=== PATIENT | male | born 1955 | race Caucasian/White ===

== ENCOUNTER 2016-10-31 13:00 | Emergency (ER) | payer SELFPAY ==
[~2016-10-31 13:00] MED LIST: Iopamidol 370 76% 125 ML VIAL FS ONE; Sodium Chloride 0.9% 100 ML BAG ONE
[2016-10-31] MEDS ORDERED: methylPREDNISolone Sod Succ/PF 125 MG/2 ML VIAL ONE (13:13)
[2016-10-31 13:50] LABS: #Basophils 0.1 thou/uL (0.0-0.2); #Eosinphils 0.1 thou/uL (0.0-0.7); #Lymphocytes 1.8 thou/uL (1.20-3.40); #Monocytes 0.9 thou/uL (0.11-0.59); %Basophils 1.4 % (0.0-1.0); %Eosinophils 1.3 % (0.0-10.0); %Lymphocytes 25.7 % (21.0-51.0); %Monocytes 13.6 % (0.0-10.0); Hemoglobin 14.1 g/dL (14.0-18.0); Mean Corpuscular HGB CONC 33.8 g/dL (32.0-36.0); Mean Corpuscular Hemoglobin 31.3 pg (27.0-31.0); Mean Corpuscular Volume 92.5 fl (80.0-94.0); Mean Platelet Volume 7.6 fL (7.4-10.4); Platelet Count 243 thou/uL (130-400); RBC Distribution Width 12.9 % (11.5-14.5); Red Blood Cell (RBC) Count 4.49 mill/uL (4.70-6.10); White Blood Cell (WBC) Count 6.9 thou/uL (4.8-10.8)
[2016-10-31 14:01] LABS: ALT (SGPT) 32 U/L (0-55); AST (SGOT) 43 U/L (5-34); Albumin 4.2 g/dL (3.5-5.0); Alkaline Phosphatase 68 U/L (40-150); Anion Gap 20 mmol/L (10-20); BUN (Urea Nitrogen) 11 mg/dL (8.4-25.7); Bilirubin, Total 0.8 mg/dL (0.2-1.2); Calc. Creatinine Clearance 0 mL/min (70-130); Calcium 9.6 mg/dL (7.8-10.44); Carbon Dioxide 27 mmol/L (22-29); Chloride 97 mmol/L (98-107); Estimated GFR-MDRD Greater than 90; Globulin 3.4 g/dL (2.4-3.5); Glucose 84 mg/dL (70-105); Potassium 4.2 mmol/L (3.5-5.1); Protein, Total 7.6 g/dL (6.0-8.3); Sodium 140 mmol/L (136-145)
[2016-10-31 14:06] LABS: Troponin I Less than 0.010 ng/mL (< 0.028)
--- NOTE | 2016-10-31 14:23 | CT ---
CT ARTERIOGRAM CHEST WITH IV CONTRAST AND 3D MIP IMAGING: History: Dyspnea. FINDINGS: There is good contrast opacification of the pulmonary arteries and thoracic aorta with normal branch ing of the great vessels. Calcification is present within the arterial structures. Lungs are hyper inflated. No pleural fluid or pneumothorax are evident. There are degenerative changes of the thor acic spine. Calcified granulomata are consistent with healed granulomatous disease. IMPRESSION: 1. No CT evidence of pulmonary embolis. 2. Atherosclerosis. 3. COPD. POS: JIMENAH
[2016-10-31] MEDS ORDERED: Albuterol Sulfate 2.5 mg/0.5 ml Neb ONE (14:44)
[2016-10-31] MEDS ORDERED: Albuterol Sulfate 1.25 MG/3 ML NEB ONE (14:46)
--- NOTE | 2016-10-31 16:20 | PICIS ---
[facility] EMERGENCY RECORD TRIAGE (SatOct 31, 2016 13:07 JDIS) TRIAGE NOTES: pt with sob all day. +smoker. (SatOct 31, 2016 13:07 JDIS) PATIENT: NAME: Jalil Cummings, AGE: 61, GENDER: male, : Parveen1955, TIME OF GREET: SatOct 31, 2016 13:01, PREFERRED LANGUAGE: Chadian, ETHNICITY: Not or , ECODE BILLING MAP: [facility], SSN: [id number], Zip Code: [address], KG WEIGHT: 81.65, PHONE: , , , PERSON ID: [id number], PCP: none. (SatOct 31, 2016 13:07 JDIS) COMPLAINT: dyspnea. (SatOct 31, 2016 13:07 JDIS) ADMISSION: URGENCY: 2 Emergent, ADMISSION SOURCE: Other, TRANSPORT: Walk-in, BED: ED -01. (SatOct 31, 2016 13:07 JDIS) SIRS SCORING: Heart Rate 55-109 (0), Temp range 96.8-101.1 (0), respiratory rate 12-24 (0), Mental Status altered: no (0), Infection or Suspected Infection: No. (13:32 JDIS) TRIAGE SCREENING: Patient denies suicidal ideation, Patient denies presence of domestic violence. (13:32 JDIS) PROVIDERS: TRIAGE NURSE: Perla Aguilar RN. (SatOct 31, 2016 13:07 JDIS) PREVIOUS VISIT ALLERGIES: No Known Drug Allergies. (SatOct 31, 2016 13:07 JDIS) No Known Drug Allergies. (13:32 JDIS) KNOWN ALLERGIES No Known Drug Allergies CURRENT MEDICATIONS (13:32 JDIS) None VITAL SIGNS VITAL SIGNS: Pulse: 78, Resp: 24, Temp: 97.3 (Tympanic), Pain: 0, O2 sat: 95 on Room Air, Time: 10/31/2016 13:15. (13:15 JDIS) BP: 101/69, Time: 10/31/2016 13:35. (13:35 JDIS) BP: 145/75, Pulse: 75, Resp: 20, Pain: 0, O2 sat: 98 on 2L Oxygen, Time: 10/31/2016 14:01. (14:01 JDIS) BP: 120/70, Pulse: 74, Resp: 26, Temp: 98.4 (Oral), Pain: 0, O2 sat: 98 on Room Air, Time: 10/31/2016 14:16. (14:16 JDIS) BP: 126/68, Pulse: 60, Resp: 18, Pain: 0, O2 sat: 97 on Room Air, Time: 10/31/2016 14:53. (14:53 JDIS) BP: 137/68, Pulse: 68, Resp: 22, Temp: 98.4, Pain: 0, O2 sat: 97 on 2l, Time: 10/31/2016 15:36. (15:36 JDIS) NURSING ASSESSMENT: FALL RISK (13:41 JDIS) FALL RISK: Impaired mobility (3), Total score 3, No risk for fall. NURSING ASSESSMENT: RESPIRATORY /CHEST (13:30 JDIS) CONSTITUTIONAL: Patient arrives, via hospital wheelchair, Unsteady gait, History obtained from patient, Patient &a-1R&a+25V*p+0X*e5462W*c202B*c15G*c2P*p-0X&a-25V&a+1R Name: Jalil Cummings : 1955 M61 MedRec: [id number] AcctNum: [id number] Prepared: SatOct 31, 2016 18:45 by Interface Page 1 of 10 pMD [facility] EMERGENCY RECORD appears, uncomfortable, Patient cooperative, Patient alert, Oriented to person, place and time, Skin warm, Skin dry, Skin normal in color, Mucous membranes pink, Mucous membranes moist, Patient is well-groomed. RESPIRATORY/CHEST: Lungs auscultated, Breath sounds with wheezing, Respiratory assessment findings include respiratory effort, labored, Respirations regular, Conversing normally, Neck and chest exam findings include trachea midline, Chest expansion equal, Chest movement symmetrical. NURSING PROCEDURE: DISCHARGE NOTE (15:36 JDIS) DISCHARGE: Patient discharged to home, ambulating without assistance, patient walking, unaccompanied, Summary of Care printed/ provided, Patient requested and was provided an electronic copy of Discharge Instructions, Transition record given to patient, Discharge instructions given to patient, Simple or moderate discharge teaching performed, by Juan Jose Aguilar RN, Above person(s) verbalized understanding of discharge instructions and follow-up care, Patient treated and evaluated by physician. VITAL SIGNS: BP: 137, / 68, Pulse: 68, Resp: 22, Temp: 98.4, Pain: 0, O2 sat: 97, on: 2l. NURSING PROCEDURE: EKG CHART (13:10 JDIS) PATIENT IDENTIFIER: Patient actively involved in identification process, Patient's identity verified by patient stating name, Patient's identity verified by patient stating date. EKG: EKG indicated for dyspnea, 12 lead EKG performed on the left chest. FOLLOW-UP: After procedure, EKG for interpretation given to Dr. Dr Mckeon. NURSING PROCEDURE: IV PATIENT IDENITIFIER: Patient actively involved in identification process, Patient's identity verified by patient stating name, Patient's identity verified by patient stating date. (13:20 JDIS) IV SITE 1: IV therapy indicated for hydration, IV therapy indicated for medication administration, IV established, Notes: 2 failed attempts by ARTHUR Lee. (13:25 SFRE) IV therapy indicated for medication administration, IV established, to posterior left elbow, using an 18 gauge catheter, in one attempt, Labs drawn at time of placement, labeled in the presence of the patient and sent to lab. (13:20 JDIS) NOTES: Patient tolerated procedure well. (13:20 JDIS) NURSING PROCEDURE: NURSE NOTES NURSES NOTES: Notes: Pt to room 1 via WC c/o SOB all day. Denies any hx of asthma or COPD. Pt +smoker "most of my life". Skin warm and dry. Pt with increased respirations. Denies any fever. Able to talk in short sentences. Pt on monitor and O2. at bedside for &a-1R&a+25V*p+0X*m5559Q*c202B*c15G*c2P*p-0X&a-25V&a+1R Name: Jalil Cummings Janice : 1955 M61 MedRec: [id number] AcctNum: [id number] Prepared: SatOct 31, 2016 18:45 by Interface Page 2 of 10 pMD [facility] EMERGENCY RECORD eval. Pt with wheezing. (13:07 JDIS) Notes: IV done and labs drawn. Pt marjan well. Neb in progress. Pt medicated with steroid. Will monitor. (13:20 JDIS) Notes: Neb in progress. Pt marjan well. (14:52 JDIS) NURSING PROCEDURE: TRANSPORT TO TESTS PATIENT IDENTIFIER: Patient actively involved in identification process, Patient's identity verified by patient stating name, Patient's identity verified by patient stating date. (13:41 JDIS) TRANSPORT TO TESTS: Transport indicated to facilitate diagnosis, Patient transported to CT scan, via wheelchair, Accompanied by x-ray bottle house quality control technician. (13:41 JDIS) FOLLOW-UP: After procedure, patient returned to emergency department. (13:55 JDIS) ORDER DETAILS Order Name: B type Natriuretic Peptide, Status: Active, Time: 13:08 10/31/2016, User: BPIC, - Ordered for: MD Mckeon Bryan, - Entered by: MD Mckeon Bryan - [facility] Oct 31, 2016 13:08, - Quantity: 1, Order Name: Cardiac Profile w/CKMB & Troponin - I, Status: Active, Time: 13:08 10/31/2016, User: BPIC, - Ordered for: MD Mckeon Bryan, - Entered by: MD Mckeon Bryan - [facility] Oct 31, 2016 13:08, - Quantity: 1, Order Name: CBC with Differential, Status: Active, Time: 13:08 10/31/2016, User: BPIC, - Ordered for: MD Mckeon Bryan, - Entered by: MD Mckeon Bryan - [facility] Oct 31, 2016 13:08, - Quantity: 1, Order Name: Comprehensive Metabolic Panel, Status: Active, Time: 13:08 10/31/2016, User: BPIC, - Ordered for: MD Mckeon Bryan, - Entered by: MD Mckeon Bryan - [facility] Oct 31, 2016 13:08, - Quantity: 1, Order Name: CTA Angio Chest W WO Con(PE Protocol), Status: Active, Time: 13:08 10/31/2016, User: BPIC, - Ordered for: MD Mckeon Bryan, - Entered by: MD Mckeon Bryan - [facility] Oct 31, 2016 13:08, - Quantity: 1, Order Name: Culture, Blood, Status: Active, Time: 13:09 10/31/2016, User: DMITRY, - Ordered for: MD Mckeon Bryan, - Entered by: MD Mckeon Bryan - SatOct 31, 2016 13:09, - Quantity: 1, Order Name: EKG 12 Lead in Emergency Room, Status: Active, Time: 13:08 10/31/2016, User: BPIC, &a-1R&a+25V*p+0X*[id number]*c202B*c15G*c2P*p-0X&a-25V&a+1R Name: Jalil Cummings : 1955 M61 MedRec: [id number] AcctNum: [id number] Prepared: SatOct 31, 2016 18:45 by Interface Page 3 of 10 D [facility] EMERGENCY RECORD - Ordered for: MD Mckeon Bryan, - Entered by: MD Mckeon Bryan - SatOct 31, 2016 13:08, - Quantity: 1, Order Name: Lactic Acid with repeat, Status: Active, Time: 13:09 10/31/2016, User: BPNIDHI, - Ordered for: MD Mckeon Bryan, - Entered by: MD Mckeon Bryan - SatOct 31, 2016 13:09, - Quantity: 1. MEDICATION ADMINISTRATION SUMMARY Drug Name: albuterol sulfate inhalation, Dose Ordered: 5 mg, Route: Nebulize, Status: Given, Time: 14:52 10/31/2016, Drug Name: *DuoNeb, Dose Ordered: 3 mL, Route: Nebulize, Status: Given, Time: 13:28 10/31/2016, Drug Name: methylPREDNISolone sodium succ injection, Dose Ordered: 125 mg, Route: IV Push, Status: Given, Time: 13:20 10/31/2016, *Additional information available in notes, Detailed record available in Medication Service section. MEDICATION SERVICE albuterol sulfate inhalation: Order: albuterol sulfate inhalation (albuterol sulfate) - Dose: 5 mg : Nebulize Schedule: Now Ordered by: Elier Mckeon MD Entered by: Elier Mckeon MD SatOct 31, 2016 14:41 , Acknowledged by: Perla Aguilar RN SatOct 31, 2016 14:43 Documented as given by: Perla Aguilar RN SatOct 31, 2016 14:52 Patient, Medication, Dose, Route and Time verified prior to administration. With oxygen, Correct patient, time, route, dose and medication confirmed prior to administration, Patient advised of actions and side-effects prior to administration, Allergies confirmed and medications reviewed prior to administration. DuoNeb: Order: DuoNeb (ipratropium bromide/albuterol sulfate) - Dose: 3 mL : Nebulize Notes: (0.5mg Ipratropium [place]/3mg Albuterol Sulfate = 3ml) Ordered by: Elier Mckeon MD Entered by: Elier Mckeon MD SatOct 31, 2016 13:08 Documented as given by: Perla Aguilar RN SatOct 31, 2016 13:28 Patient, Medication, Dose, Route and Time verified prior to administration. With oxygen, Correct patient, time, route, dose and medication confirmed prior to administration, Patient advised of actions and side-effects prior to administration, Allergies confirmed and medications reviewed prior to administration. methylPREDNISolone sodium succ injection: Order: methylPREDNISolone sodium succ injection (methylprednisolone sod succ) - Dose: 125 mg : IV Push Ordered by: Elier Mckeon MD &a-1R&a+25V*p+0X*w3647A*c202B*c15G*c2P*p-0X&a-25V&a+1R Name: Jalil Cummings Janice : 1955 M61 MedRec: [id number] AcctNum: [id number] Prepared: SatOct 31, 2016 18:45 by Interface Page 4 of 10 pMD [facility] EMERGENCY RECORD Entered by: Elier Mckeon MD SatOct 31, 2016 13:08 Documented as given by: Perla Aguilar RN SatOct 31, 2016 13:20 Patient, Medication, Dose, Route and Time verified prior to administration. IV SITE #1 IVP, initial medication, Slowly, Catheter placement confirmed via flush prior to administration, IV site without signs or symptoms of infiltration during medication administration, No swelling during administration, No drainage during administration, IV flushed after administration, Correct patient, time, route, dose and medication confirmed prior to administration, Patient advised of actions and side-effects prior to administration, Allergies confirmed and medications reviewed prior to administration. HPI ASTHMA (13:09 BPIC) CHIEF COMPLAINT: Patient presents for evaluation of shortness of breath, Patient presents for evaluation of wheezing. HISTORIAN: History provided by patient, Pt with history of COPD presents with greater than a day history of progressive shortness of breath. Patient states that the shortness of breath can sometimes worsen with allergies or with weather changes or changes in medications. dyspnea is also worse currently with exertion. similar to previous episodes of dyspnea. pt also had broken his right fibula 3 weeks ago and was supposed to be put in a cast, but could not afford it. QUALITY: Symptoms described as wheezing. SEVERITY: Maximum severity of symptoms moderate, Currently symptoms are moderate. TIME COURSE: Gradual onset of symptoms. ROS (13:09 BPIC) CONSTITUTIONAL: Negative constitutional review of systems, Historian denies chills, denies fever. EYES: Negative eye review of systems. ENT: Negative ears, nose, throat review of systems. CARDIOVASCULAR: Negative cardiovascular review of systems, Historian denies chest pain, denies palpitations. RESPIRATORY: see hpi. GI: Negative gastrointestinal review of systems, Historian denies abdominal pain, denies constipation, denies diarrhea. MUSCULOSKELETAL: Negative musculoskeletal review of systems. SKIN: Negative skin review of systems. NEUROLOGIC: Negative neurologic review of systems. ENDOCRINE: Negative endocrine review of systems. HEMO/LYMPHATIC: Normal hematologic/lymphatic system review. PSYCHIATRIC: Negative psychiatric review of systems. NOTES: All other ROS is negative except as listed in HPI. PAST MEDICAL HISTORY MEDICAL HISTORY: Past medical history includes history of hypertension. (13:32 JDIS) &a-1R&a+25V*p+0X*l6804N*c202B*c15G*c2P*p-0X&a-25V&a+1R Name: Jalil Cummings Janice : 1955 M61 MedRec: [id number] AcctNum: [id number] Prepared: SatOct 31, 2016 18:45 by Interface Page 5 of 10 pMD [facility] EMERGENCY RECORD MALE SURGICAL HISTORY: Surgical history of orthopedic surgery, LEFT ARM-PINS AND RODS. (13:32 JDIS) PSYCHIATRIC HISTORY: No previous psychiatric history. (13:32 JDIS) SOCIAL HISTORY: Patient denies alcohol use, Patient denies drug use, Patient currently uses tobacco, smokes cigarettes. (13:32 JDIS) NOTES: I have reviewed and agree with the PMH/PSxH/FamHx/SocHx obtained by the nurse. (13:09 BPIC) PHYSICAL EXAM (13:09 BPIC) CONSTITUTIONAL: mild respiratory distress. HEAD: Head exam included findings of head atraumatic, normocephalic. EYES: Eye exam included findings of eyelids normal to inspection, Pupils equally round and reactive to light, Extraocular muscles intact. ENT: ENT exam normal, Nose exam normal, no nasal deformity, no bleeding from nares, Pharynx exam normal, Mouth exam normal, mucous membranes moist. NECK: Neck exam included findings of normal range of motion, Trachea midline. RESPIRATORY CHEST: Wheezing present, scattered. CARDIOVASCULAR: Cardiovascular assessment normal, Cardiovascular exam included findings of heart rate regular rate and rhythm, Heart sounds normal, equal radial and DP pulses. ABDOMEN FEMALE: Abdominal exam included findings of abdomen nontender, Bowel sounds normal, no mass, no pulsatile masses, no peritoneal signs. BACK: Back exam included findings of normal inspection, range of motion normal, no costovertebral angle tenderness. UPPER EXTREMITY: Upper extremity exam included findings of inspection normal, Range of motion normal. LOWER EXTREMITY: Lower extremity exam included findings of inspection shows right leg to be tender and slightly swollen (greatly improved per the patient's report), Range of motion normal. NEURO: Neuro exam findings include patient oriented to person, place and time, Speech normal, no focal motor deficits, no focal sensory deficits. SKIN: Skin exam included findings of skin warm, dry, and normal in color. PSYCHIATRIC: Psychiatric exam included findings of patient oriented to person place and time, Normal affect. EVENTS TRANSFER: Triage to Emergency Main ED -01. (SatOct 31, 2016 13:07 JDIS) Removed from Emergency Main ED -01. (16:07 JDIS) &a-1R&a+25V*p+0X*c9553D*c202B*c15G*c2P*p-0X&a-25V&a+1R Name: Cummings, Jalil Camacho : 1955 M61 MedRec: [id number] AcctNum: [id number] Prepared: SatOct 31, 2016 18:45 by Interface Page 6 of 10 pMD [facility] EMERGENCY RECORD EKG INTERPRETATION (13:09 BPIC) 12 LEAD EKG INTERPRETATION: 12 lead EKG interpreted by Emergency Department Physician at time of study, 12 lead EKG shows normal sinus rhythm, Rate (beats per minute): 75, Interpretation: normal EKG, Similar to old EKG, Conduction normal, ST segments normal, T waves normal, [place] normal, Clinical impression: Normal EKG. DOCTOR NOTES (13:09 BPIC) TEXT: COPD exacerbation, CT PE protocol ordered because of recent long bone injury. Patient's symptoms have improved after treatments in the ER. I discussed the diagnosis with the patient prior to discharge. All questions were answered. There is no indication for admission currently and the patient will follow up with a primary care physician. Any pertinent labs or imaging were reviewed and dicussed with the patient. If any new or emergent symptoms occur, the patient will return to the emergency department. PROBLEM LIST No recorded problems DIAGNOSIS (15:24 BPIC) FINAL: PRIMARY: COPD exacerbation. DISPOSITION PATIENT: Disposition Type: Discharge, Disposition: *Discharge Home, Condition: Good. (15:24 BPIC) Patient left the department. (16:07 JDIS) INSTRUCTION (15:16 BPIC) DISCHARGE: COPD FLARE. FOLLOWUP: [facility], -, Primary Care Referral Line, , [facility], ., Clinic, [address] [place] [address], [address], [facility] , . SPECIAL: Please follow up with your physician in the next 2-3 days. Return to the Emergency Room with any worsening of your symptoms or other emergent concerns. Thank you for choosing [facility] Emergency Department for your care today, and God Bless You!. PRESCRIPTION (15:16 BPIC) albuterol sulfate inhalation: HFA AEROSOL WITH ADAPTER (GRAM) : 90 mcg : INHALATION : Quantity: 1-2 Unit: inhalation Route: INHALATION Schedule: every 6 hours PRN Dispense: 1 May substitute. Refills: No Refills . NOTES: No Refills. Keflex: CAPSULE : 500 mg : ORAL : Quantity: 500 Unit: mg Route: ORAL Schedule: 2 times a day Dispense: 20 May substitute. Refills: No Refills . NOTES: ^s=No Refills &a-1R&a+25V*p+0X*e6679F*c202B*c15G*c2P*p-0X&a-25V&a+1R Name: Jalil Cummings : 1955 M61 MedRec: [id number] AcctNum: [id number] Prepared: SatOct 31, 2016 18:45 by Interface Page 7 of 10 pMD [facility] EMERGENCY RECORD No Refills. predniSONE oral: TABLET : 50 mg : ORAL : Quantity: 50 Unit: mg Route: ORAL Schedule: once a day Dispense: 5 Unit: tab(s) May substitute. Refills: No Refills . NOTES: ^s=^s=No Refills No Refills No Refills. IMAGING *EKG: Image captured from scanner. (14:28 JDIS) *DISCHARGE INSTRUCTIONS RECEIPT: Image captured from scanner. (15:37 JDIS) *SUPPLY CHARGE SHEET: Image captured from scanner. (15:37 JDIS) ADMIN (18:34 BPIC) DIGITAL SIGNATURE: MD Mckeon Bryan. RESULTS RADIOLOGY: CTA Angio Chest W WO Con Observe DT: SatOct 31, 2016 13:09, CTATHX CT ARTERIOGRAM CHEST WITH IV CONTRAST AND 3D MIP IMAGING: History: Dyspnea. FINDINGS: There is good contrast opacification of the pulmonary arteries and thoracic aorta with normal branch ing of the great vessels. Calcification is present within the arterial structures. Lungs are hyper inflated. No pleural fluid or pneumothorax are evident. There are degenerative changes of the thor acic spine. Calcified granulomata are consistent with healed granulomatous disease. IMPRESSION: 1. No CT evidence of pulmonary embolis. 2. Atherosclerosis. 3. COPD. POS: [facility] . (14:53 BPIC) LABORATORY: Lactic Acid for Sepsis Collection DT: SatOct 31, 2016 13:41, Lactic Acid - Sepsis 1.2 mmol/L, Range (0.5-2.2). (14:00 BPIC) CBC with Differential Collection DT: SatOct 31, 2016 13:41, White Blood Cell (WBC) Count 6.9 thou/uL, Range (4.8-10.8), *Red Blood Cell (RBC) Count 4.49 - L mill/uL, Range (4.70-6.10), Hemoglobin 14.1 g/dL, Range (14.0-18.0), &a-1R&a+25V*p+0X*p0725L*c202B*c15G*c2P*p-0X&a-25V&a+1R Name: Jalil Cummings : 1955 M61 MedRec: [id number] AcctNum: [id number] Prepared: SatOct 31, 2016 18:45 by Interface Page 8 of 10 pMD [facility] EMERGENCY RECORD *Hematocrit 41.6 - L %, Range (42.0-52.0), Mean Corpuscular Volume 92.5 fl, Range (80.0-94.0), *Mean Corpuscular Hemoglobin 31.3 - H pg, Range (27.0-31.0), Mean Corpuscular HGB CONC 33.8 g/dL, Range (32.0-36.0), RBC Distribution Width 12.9 %, Range (11.5-14.5), Platelet Count 243 thou/uL, Range (130-400), Mean Platelet Volume 7.6 fL, Range (7.4-10.4), %Neutrophils 58.0 %, Range (42.0-75.0), %Lymphocytes 25.7 %, Range (21.0-51.0), *%Monocytes 13.6 - H %, Range (0.0-10.0), %Eosinophils 1.3 %, Range (0.0-10.0), *%Basophils 1.4 - H %, Range (0.0-1.0), #Neutrophils 4.0 thou/uL, Range (1.40-6.50), #Lymphocytes 1.8 thou/uL, Range (1.20-3.40), *#Monocytes 0.9 - H thou/uL, Range (0.11-0.59), #Eosinphils 0.1 thou/uL, Range (0.0-0.7), #Basophils 0.1 thou/uL, Range (0.0-0.2). (14:00 BPIC) B type Natriuretic Peptide Collection DT: SatOct 31, 2016 13:41, B type Natriuretic Peptide 29.3 pg/mL, Range (0-100). (14:15 BPIC) Cardiac Profile w/CKMB & TropI Collection DT: SatOct 31, 2016 13:41, CKMB 2.0 ng/mL, Range (0-6.6), Troponin I Less than 0.010 ng/mL, Range (< 0.028), Reference Range , 0.00 - 0.028 ng/mL Negative 0.029 - 0.29 ng/mL , Indeterminate Greater or Equal to 0.3 ng/mL Strongly suggests MT , . (14:15 BPIC) Comprehensive Metabolic Panel Collection DT: SatOct 31, 2016 13:41, Sodium 140 mmol/L, Range (136-145), Potassium 4.2 mmol/L, Range (3.5-5.1), *Chloride 97 - L mmol/L, Range (98-107), Carbon Dioxide 27 mmol/L, Range (22-29), Anion Gap 20 mmol/L, Range (10-20), BUN (Urea Nitrogen) 11 mg/dL, Range (8.4-25.7), *Creatinine 0.66 - L mg/dL, Range (0.7-1.3), Estimated GFR-MDRD Greater than 90 , Reference Range for Estimated GFR: Greater than 90, mL/min/1.73 m2 NOTE: The MDRD equation has not been validated for use, with the elderly (over 70 years of age), women, patients with, serious comorbid condition or persons with extremes of body size, muscle, mass, or nutritional status. , Glucose 84 mg/dL, Range (70-105), Calcium 9.6 mg/dL, Range (7.8-10.44), Bilirubin, Total 0.8 mg/dL, Range (0.2-1.2), Protein, Total 7.6 g/dL, Range (6.0-8.3), NOTE: Plasma values are generally 0.3 to 0.5 g/dL higher &a-1R&a+25V*p+0X*o2644N*c202B*c15G*c2P*p-0X&a-25V&a+1R Name: Jalil Cummings : 1955 M61 MedRec: [id number] AcctNum: [id number] Prepared: SatOct 31, 2016 18:45 by Interface Page 9 of 10 pMD [facility] EMERGENCY RECORD than serum values, due to the presence of fibrinogen. , Albumin 4.2 g/dL, Range (3.5-5.0), Globulin 3.4 g/dL, Range (2.4-3.5), Alb/Glob Ratio 1.2 g/dL, Range (1.2-2.2), Alkaline Phosphatase 68 U/L, Range (40-150), *AST (SGOT) 43 - H U/L, Range (5-34), ALT (SGPT) 32 U/L, Range (0-55). (14:15 BPIC) Alvarez: BPIC=MD Linda, Elier JDIS=ARTHUR Aguilar, Perla SFRE=ARTHUR Liz, Jami &a-1R&a+25V*p+0X*l0694L*c202B*c15G*c2P*p-0X&a-25V&a+1R Name: Jalil Cummings : 1955 M61 MedRec: [id number] AcctNum: [id number] Prepared: SatOct 31, 2016 18:45 by Interface Page 10 of 10 pMD [facility]TDD
== END 2016-10-31 15:36 | disposition home or self-care (01) ==
LOC: MADERS 13:00
DX: J44.1 Chronic obstructive pulmonary disease with (acute) exacerbation (principal); I10 Essential (primary) hypertension; Z72.0 Tobacco use
CPT/HCPCS: 71275; 80053; 82553; 83605; 83880; 84484; 85025; 87040; 93005; 96374; J2930; J7050; J7611; J7620